=== PATIENT | female | born 1950 | race Caucasian/White ===

== ENCOUNTER → 2021-04-30 | Outpatient (CLI) | payer MEDICARE ==
[~2021-04-30] MED LIST: ALFUZOSIN HCL10 MG; ATORVASTATIN CA10 MG PO; BREO ELLIPTA 11 EACH INH; CLORAZEPATE D3.75 MG PO; ESTRADIOL1 MG PO; FLOMAX0.4 MG PO; MAXZIDE 37.5 M1 EACH PO; OMEPRAZOLE40 MG PO
== END ==
LOC: CARD 12:23
PROVIDERS: ATTEND Family Medicine
DX: R94.31 Abnormal electrocardiogram [ECG] [EKG] (principal); Z01.818 Encounter for other preprocedural examination; F41.9 Anxiety disorder, unspecified; I10 Essential (primary) hypertension; Z20.822 Contact with and (suspected) exposure to COVID-19
CPT/HCPCS: 93017

== ENCOUNTER → 2021-05-26 | Day surgery (SDC) | payer MEDICARE ==
[~2021-05-26] MED LIST changes: +OR PHACO EYE KIT ONE; +PREOP PHACO EYE KIT ONE
[2021-05-26 12:40] VITALS: BP 147/84
== END | disposition home or self-care (01) ==
LOC: OR 09:43
PROVIDERS: ATTEND Ophthalmology
DX: H25.11 Age-related nuclear cataract, right eye (principal); J44.9 Chronic obstructive pulmonary disease, unspecified; E78.5 Hyperlipidemia, unspecified; I10 Essential (primary) hypertension; K44.9 Diaphragmatic hernia without obstruction or gangrene; K57.90 Diverticulosis of intestine, part unspecified, without perforation or abscess without bleeding; F17.210 Nicotine dependence, cigarettes, uncomplicated; Z88.2 Allergy status to sulfonamides; Z88.1 Allergy status to other antibiotic agents; Z01.812 Encounter for preprocedural laboratory examination; Z20.822 Contact with and (suspected) exposure to COVID-19; Z79.899 Other long term (current) drug therapy; Z90.49 Acquired absence of other specified parts of digestive tract
CPT/HCPCS: 66984; U0002; V2632